=== PATIENT | female | born 1980 | race Caucasian/White ===

== ENCOUNTER 2016-06-30 13:10 | Emergency (ER) | payer BC ==
[~2016-06-30] VITALS: Ht 152.4 cm; Wt 62.3 kg
[~2016-06-30 13:10] MED LIST: CEFTIN 250250 MG/TAB PO; ESTROGEL; FLAGYL500 MG PO; LORTAB 5/500 501 TAB PO; MIDRIN; NEXIUM 20MG20 MG PO; NEXIUM 40MG40 MG PO; NORCO 325 MG-51 TAB PO; PERCOCET 325 MG1 TAB PO; PHENERGAN 25 TA25 MG PO; TUSS PO; ZOFRAN ODT4 MG PO; ZOFRAN ODT8 MG PO
[2016-06-30 13:20] VITALS: TEMP 98.4
[2016-06-30] MEDS ORDERED: ADVIL200 MG PO (13:45)
[2016-06-30] MEDS ORDERED: VIVELLE-DO0.025 MG/2 TD (13:46)
[2016-06-30] MEDS ORDERED: ALLEGRA 180MG180 MG PO (13:46)
[2016-06-30 14:39] LABS: BASO % 0.4 % (0.0-2.0); EOS # 0.1 (0.0-0.7); GRAN % 61.6 % (42.2-75.2); HEMATOCRIT 40.7 % (37.0-47.0); HEMOGLOBIN 13.6 g/dl (12.5-16.0); LYMPH # 3.6 (1.2-3.4); MEAN CELL VOLUME 95 fl (80.0-100.0); MEAN CORPUSCULAR HEMOGLOBIN 32 pg (27.0-31.0); MEAN CORPUSCULAR HGB CONC 33 g/dl (33.0-37.0); MEAN PLATELET VOLUME 9.2 fl (7.4-10.4); MONO # 0.5 (0.1-0.6); MONO % 4.7 % (1.7-9.3); PLATELET COUNT 242 K/mm3 (130-400); REDCELL DISTRIBUTION WIDTH-CV 12.4 % (11.5-14.5); WHITE BLOOD COUNT 11.3 K/mm3 (4.8-10.8)
[2016-06-30 14:48] LABS: PH 6 (5-8); SQUAMOUS EPITHELIAL 0-2 /hpf; URINE APPEARANCE Clear; URINE BACTERIA Rare /hpf; URINE BILIRUBIN Negative (NEGATIVE); URINE BLOOD Negative (NEGATIVE); URINE COLOR Yellow; URINE GLUCOSE Negative (NEGATIVE); URINE KETONE Negative (NEGATIVE); URINE RBC 0-2 /hpf; URINE UROBILINOGEN Negative (NEGATIVE); URINE WBC 0-2 /hpf
[2016-06-30 14:53] LABS: CALCIUM 9.3 mg/dL (8.4-10.2); CREATININE, serum 0.85 mg/dL (0.52-1.25)
[2016-06-30] MEDS ORDERED: PERCOCET 325 MG1 TA2 PO (15:00)
[2016-06-30] MEDS ORDERED: ZOFRAN8 MG PO (15:00)
[2016-06-30] MEDS ORDERED: ULTRAM 50MG TAB50 MG PO (15:00)
[2016-06-30 16:16] VITALS: BP 140/83; PULSE 84
== END 2016-06-30 16:31 | disposition home or self-care (01) ==
LOC: COL.ER 13:10
PROVIDERS: Emergency Medicine
DX: R10.2 Pelvic and perineal pain (principal); N94.89 Other specified conditions associated with female genital organs and menstrual cycle
CPT/HCPCS: J1170; J2405; J7030

== ENCOUNTER 2017-05-25 04:29 | Emergency (ER) | payer BC ==
[~2017-05-25] VITALS: Ht 152.4 cm; Wt 61.4 kg
[~2017-05-25 04:29] MED LIST changes: +ADVIL200 MG PO; +ALLEGRA 180MG180 MG PO; +PERCOCET 325 MG1 TA2 PO; +ULTRAM 50MG TAB50 MG PO; +VIVELLE-DO0.025 MG/2 TD; +ZOFRAN8 MG PO
[2017-05-25] MEDS ORDERED: ALLEGRA ALLERG180 MG PO (04:37)
[2017-05-25] MEDS ORDERED: NEXIUM 20MG20 MG PO (04:38)
[2017-05-25] MEDS ORDERED: NORCO 325 MG-51 TAB PO (04:39)
[2017-05-25 05:15] LABS: BASO % 0.2 % (0.0-2.0); EOS % 0.1 % (0-4.0); GRAN # 10.5 (1.4-6.5); GRAN % 88.2 % (42.2-75.2); HEMATOCRIT 38.7 % (37.0-47.0); HEMOGLOBIN 13.3 g/dl (12.5-16.0); LYMPH # 0.9 (1.2-3.4); LYMPH % 7.9 % (20.0-51.0); MEAN CELL VOLUME 93 fl (80.0-100.0); MEAN CORPUSCULAR HEMOGLOBIN 32 pg (27.0-31.0); MEAN CORPUSCULAR HGB CONC 34 g/dl (33.0-37.0); MEAN PLATELET VOLUME 9.3 fl (7.4-10.4); MONO # 0.4 (0.1-0.6); MONO % 3.3 % (1.7-9.3); PLATELET COUNT 231 K/mm3 (130-400); RED BLOOD COUNT 4.16 M/mm3 (4.10-5.30)
[2017-05-25 05:25] LABS: BILIRUBIN,TOTAL 0.3 mg/dL (0.0-1.0); CALCIUM 8.5 mg/dL (8.4-10.2); CREATININE, serum 0.77 mg/dL (0.52-1.25); POTASSIUM 3.6 mmol/L (3.4-5.0); TOTAL PROTEIN 6.7 gm/dL (6.4-8.2)
[2017-05-25] MEDS ORDERED: AMOXICILLIN 50500 MG PO (05:47)
[2017-05-25 06:35] VITALS: BP 126/64; PULSE 112; TEMP 100
== END 2017-05-25 06:36 | disposition home or self-care (01) ==
LOC: COL.ER 04:29
PROVIDERS: Emergency Medicine
DX: J02.9 Acute pharyngitis, unspecified (principal); B34.9 Viral infection, unspecified; F17.210 Nicotine dependence, cigarettes, uncomplicated; Z87.42 Personal history of other diseases of the female genital tract
CPT/HCPCS: J0696; J2765; J3010; J7030

== ENCOUNTER → 2018-03-08 | Emergency (ER) | payer BC ==
[~2018-03-08] VITALS: Ht 152.4 cm; Wt 62.3 kg
[~2018-03-08] MED LIST changes: +ALLEGRA ALLERG180 MG PO; +AMOXICILLIN 50500 MG PO; +PROAIR HFA0.09 MG/AC IH; +VITAMIN C500 MG PO
[2018-03-08 08:54] VITALS: BP 135/97; PULSE 94; TEMP 98.6
[2018-03-08 09:06] LABS: BASO % 0.5 % (0.0-2.0); EOS # 0.1 (0.0-0.7); EOS % 0.6 % (0-4.0); GRAN % 59.6 % (42.2-75.2); LYMPH # 2.8 (1.2-3.4); LYMPH % 33.1 % (20.0-51.0); MEAN CELL VOLUME 94 fl (80.0-100.0); MEAN CORPUSCULAR HEMOGLOBIN 32 pg (27.0-31.0); MEAN CORPUSCULAR HGB CONC 34 g/dl (33.0-37.0); MEAN PLATELET VOLUME 9.2 fl (7.4-10.4); MONO # 0.5 (0.1-0.6); MONO % 5.8 % (1.7-9.3); PLATELET COUNT 233 K/mm3 (130-400); REDCELL DISTRIBUTION WIDTH-CV 12.1 % (11.5-14.5)
[2018-03-08 09:13] LABS: PROTHROMBIN TIME 11.5 SECONDS (9.7-12.8)
[2018-03-08 09:16] LABS: PARTIAL THROMBOPLASTIN TIME 31.3 SECONDS (26.0-37.0)
[2018-03-08 09:17] LABS: ALANINE AMINOTRANSFERASE 16 U/L (9-52); ALBUMIN 4.5 gm/dL (3.5-5.0); ALKALINE PHOSPHATASE 41 U/L (50-136); ANION GAP 8 mmol/L (7-16); AST,SGOT 18 U/L (15-37); BILIRUBIN,TOTAL 0.3 mg/dL (0.0-1.0); BLOOD UREA NITROGEN 13 mg/dL (7-17); CALCIUM 9.3 mg/dL (8.4-10.2); CARBON DIOXIDE 25 mmol/L (22-30); CHLORIDE 107 mmol/L (98-107); CREATININE, serum 0.74 mg/dL (0.52-1.25); GLUCOSE 104 mg/dL (74-106); LIPASE 113 U/L (23-300); POTASSIUM 3.8 mmol/L (3.4-5.0); SODIUM 141 mmol/L (137-145); TOTAL PROTEIN 7.5 gm/dL (6.4-8.2)
[2018-03-08 09:21] LABS: D-DIMER < 200.00 ng/mLDDu (200-230)
[2018-03-08 09:33] LABS: TROPONIN-I < 0.012 ng/mL (0.000-0.034)
[2018-03-08 10:19] LABS: MAGNESIUM 1.9 mg/dL (1.6-2.3)
== END ==
LOC: COL.ER 08:48
PROVIDERS: Emergency Medicine
DX: R00.2 Palpitations (principal)
CPT/HCPCS: J7120

== ENCOUNTER → 2019-05-10 | Outpatient (CLI) | payer OTHER, BC | LOC: COL.RAD 07:59 | DX: M79.89 Other specified soft tissue disorders (principal); M25.512 Pain in left shoulder; W19.XXXA Unspecified fall, initial encounter ==

== ENCOUNTER → 2022-04-16 | Outpatient (CLI) | payer BC | LOC: COL.LAB 14:59 | DX: M79.662 Pain in left lower leg (principal) ==